=== PATIENT | female | born 1940 | race African-American/Black ===

== ENCOUNTER 2020-05-25 08:16 | Emergency (ER) | payer MEDICARE, BC ==
[~2020-05-25] VITALS: Ht 167.6 cm; Wt 100.5 kg
[2020-05-25] MEDS ORDERED: TYLENOL325 MG PO (08:26)
[2020-05-25] MEDS ORDERED: ANTIFUNGAL30 GM TOP (08:27)
[2020-05-25] MEDS ORDERED: COLACE100 MG PO (08:32)
[2020-05-25] MEDS ORDERED: DULCOLAX STOOL100 M1 PO (08:33)
[2020-05-25] MEDS ORDERED: FLEET ENEMA133 ML RECTAL (08:36)
[2020-05-25 08:37] LABS: HEMATOCRIT 37.3 % (37.0-47.0); HEMOGLOBIN 12.8 gm/dL (12.0-15.0); MCHC 34.2 g/dL (28.0-37.0); MCV 90.5 fL (80.0-100.0); MPV 9.4 fl. (7.2-11.1); RBC 4.12 mil/uL (4.20-5.00); RDW-CV 17.5 % (10.5-14.5); WBC 6.3 thou/uL (4.0-11.0)
[2020-05-25] MEDS ORDERED: MILK OF MA400 MG/5 M PO (08:37)
[2020-05-25] MEDS ORDERED: MIRALAX119 GM PO (08:37)
[2020-05-25] MEDS ORDERED: LIDODERM1 EACH TOP (08:37)
[2020-05-25] MEDS ORDERED: LEVOXYL125 MCG PO (08:37)
[2020-05-25] MEDS ORDERED: NICOTINE PATCH1 EAC2 TRANSDERM (08:38)
[2020-05-25] MEDS ORDERED: OMEPRAZOLE40 MG PO (08:39)
[2020-05-25] MEDS ORDERED: NORCO 10-325 T1 EACH PO (08:39)
[2020-05-25] MEDS ORDERED: TRAMADOL 50 MG50 MG PO (08:39)
[2020-05-25] MEDS ORDERED: VENTOLIN HFA 1818 GM INH (08:40)
[2020-05-25 09:52] LABS: ALBUMIN 3.4 g/dL (3.4-5.0); CALCIUM 8.6 mg/dL (8.5-10.1); CREATININE 1.1 mg/dL (0.6-1.3); TOTAL BILIRUBIN 0.7 mg/dL (<0.1-1.0); TOTAL PROTEIN 6.9 g/dL (6.4-8.2)
[2020-05-25] MEDS ORDERED: NORCO 5-325 TA1 EAC2 PO (10:53)
[2020-05-25 11:46] VITALS: BP 156/65
--- NOTE | 2020-05-25 13:41 | EKG ---
[place] [address] ELECTROCARDIOGRAM REPORT Name: WILMANJOJO Salas Room: [facility]#: [id number] Admission: 05/25/20 Attend Phys: Discharge: 05/25/20 Date of : 40 Date of Service: 05/25/20822 Report #: [id number] THIS REPORT FOR: //name// [facility] ED Test Date: 2020-05-25 Test Time: 08:23:26 Pat Name: JOJO STOVALL Department: Room: Gender: [employer]: : 1940 Requested By: Humble Kwan Order Number: [id number] MD: Kanu Bravo Measurements Intervals [place] Rate: 72 P: 72 [place]: 39 QRS: -37 QRSD: 134 T: 46 QT: 424 QTc: 465 Interpretive Statements Sinus rhythm Short [place] interval Consider anterior infarct No previous ECG available for comparison Electronically Signed On 05-25-2020 13:41:30 CDT by Kanu Bravo [email or web address] <ELECTRONICALLY SIGNED> By: Kanu Bravo MD, [facility] 05/25/20 1341 2 2 Kanu Bravo MD, FACC /EPI
== END 2020-05-25 11:46 | disposition home or self-care (01) ==
LOC: M.ERS 08:16
PROVIDERS: Emergency Medicine Emergency Medical Services
DX: M25.561 Pain in right knee (principal); M25.562 Pain in left knee; M25.571 Pain in right ankle and joints of right foot; M25.551 Pain in right hip; M25.552 Pain in left hip; E03.9 Hypothyroidism, unspecified; M19.90 Unspecified osteoarthritis, unspecified site; K21.9 Gastro-esophageal reflux disease without esophagitis